=== PATIENT | female | born 2000 | race Caucasian/White ===

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

== ENCOUNTER 2024-06-01 10:19 | Outpatient (CLI) | payer OTHER ==
[2024-06-01 11:06] LABS: Appearance,Urine Clear (Clear); Bilirubin,Urine Negative (Negative); Blood,Urine Negative (Negative); Color,Urine Light Yellow; Glucose,Urine (UA) Negative (Negative); Ketones,Urine Negative (Negative); Leukocyte Esterase,Urine Negative (Negative); Nitrite,Urine Negative (Negative); PH, Urine 5.5 (5.0-8.0); Protein,Urine Negative (Negative); Specific Gravity,Urine 1.015 (1.001-1.035); Urobilinogen,Urine <2.0 mg/dL (<2.0)
[2024-06-01 11:24] LABS: Creatinine,Urine Random 55.3 mg/dL; Protein/Creatinine Ratio,Urine 0.145
[2024-06-01 12:08] LABS: Basophils % (A) 0 %; Eosinophils # (A) 0.1 k/uL (0-0.7); Eosinophils % (A) 1 %; HCT 38.4 % (34.0-46.0); Lymphocytes # (A) 1.1 k/uL (1.0-4.8); Lymphocytes % (A) 14 %; MCH 29.8 pg (25.0-35.0); MCHC 33.9 g/dL (31.0-37.0); MCV 87.9 fL (80.0-100.0); Mean Platelet Volume 7.9; Monocytes # (A) 0.4 k/uL (0-1.0); Monocytes % (A) 5 %; Neutrophils # (A) 6.4 k/uL (1.3-7.7); Neutrophils % (A) 78 %; Platelet Count 259 k/uL (150-450); RBC 4.37 m/uL (3.80-5.40); RDW 14.7 % (11.5-15.5); WBC 8.2 k/uL (3.8-10.6)
[2024-06-01 12:19] LABS: Uric Acid 4.2 mg/dL (3.7-7.4)
[2024-06-01 13:21] VITALS: BP 119/67; PULSE 110; RESP 16; TEMP 96.7
== END 2024-06-01 13:15 | disposition home or self-care (01) ==
LOC: FBPOP 10:19
PROVIDERS: ATTEND Obstetrics & Gynecology Obstetrics
DX: O13.3 Gestational [pregnancy-induced] hypertension without significant proteinuria, third trimester (principal); O99.333 Smoking (tobacco) complicating pregnancy, third trimester; F17.200 Nicotine dependence, unspecified, uncomplicated; Z3A.38 38 weeks gestation of pregnancy
CPT/HCPCS: 59025; 82570; 84156; 84450; 84460; 84550; 85025; 81003; G0463; 99215

== ENCOUNTER 2024-06-13 05:55 | Inpatient (IN) | payer OTHER ==
[2024-06-13] MEDS ORDERED: CARBOPROST TROMETHAMINE 250 MCG/ML 1 ML AMP IM PRN (06:16)
[2024-06-13] MEDS ORDERED: TERBUTALINE 1 MG/ML VIAL SQ PRN (06:16)
[2024-06-13] MEDS ORDERED: TRANEXAMIC 1,000 MG/100ML-NACL 1,000 MG in EMPTY BAG 1 BAG IV PRN (06:16)
[2024-06-13] MEDS ORDERED: miSOPROStoL 200 MCG TAB PO PRN (06:16)
[2024-06-13] MEDS ORDERED: METHYLERGONOVINE 0.2 MG/ML 1 ML AMP IM PRN (06:16)
[2024-06-13] MEDS ORDERED: OXYTOCIN 10 UNIT/ML 1 ML VIAL IM PRN (06:16)
[2024-06-13] MEDS ORDERED: LIDOCAINE 0.5% (PF) 5 MG/ML (50 ML SDV) SQ PRN (06:16)
[2024-06-13] MEDS ORDERED: miSOPROStoL 200 MCG TAB RECTAL PRN (06:16)
[2024-06-13] MEDS: LACTATED RINGERS 1,000 ML IV SCH ×2 (06:19→20:24)
[2024-06-13 06:38] LABS: Basophils % (A) 0 %; Eosinophils # (A) 0.1 k/uL (0-0.7); Eosinophils % (A) 1 %; HCT 37.9 % (34.0-46.0); Lymphocytes # (A) 1.3 k/uL (1.0-4.8); Lymphocytes % (A) 16 %; MCH 29.4 pg (25.0-35.0); MCHC 34.4 g/dL (31.0-37.0); MCV 85.5 fL (80.0-100.0); Mean Platelet Volume 7.7; Monocytes # (A) 0.4 k/uL (0-1.0); Monocytes % (A) 5 %; Neutrophils # (A) 6.3 k/uL (1.3-7.7); Neutrophils % (A) 77 %; Platelet Count 267 k/uL (150-450); RBC 4.43 m/uL (3.80-5.40); RDW 14.3 % (11.5-15.5); WBC 8.2 k/uL (3.8-10.6)
[2024-06-13] MEDS: OXYTOCIN 30 UNITS/500 ML NS 30 UNIT in SALINE 1 500ML.BAG IV SCH (06:44)
--- NOTE | 2024-06-13 08:43 | P.HPOB ---
History of Present Illness H&P Date: 06/13/24 Chief Complaint: Postdates This is a 24-year-old 1 para 0 at 40 3/7 weeks, that presents to labor and delivery for induction of labor secondary to postdates. Patient states she contracted through the weekend but nothing uncomfortable. Patient denies loss of fluid vaginal bleeding and does admit to good movement. Patient has been receiving routine care which has been essentially uncomplicated. blood work this patient is a blood type of Review of Systems Constitutional: Denies chills, Denies fatigue, Denies fever Ears, nose, mouth and throat: Denies headache Cardiovascular: Reports leg edema Respiratory: Denies dyspnea Gastrointestinal: Denies constipation, Denies diarrhea, Denies nausea, Denies vomiting Genitourinary: Reports Past Medical History Past Medical History: No Reported History History of Any Multi-Drug Resistant Organisms: None Reported Past Surgical History: No Surgical Hx Reported Past Anesthesia/Blood Transfusion Reactions: No Reported Reaction Past Psychological History: No Psychological Hx Reported Smoking Status: Former smoker Past Alcohol Use History: None Reported Past Drug Use History: None Reported - Past Family History Mother Family Medical History: No Reported History Father Family Medical History: Hyperlipidemia Medications and Allergies Home Medications Medication Instructions Recorded Confirmed Type Aspirin [Adult Low Dose Aspirin EC] 81 mg PO DAILY 06/01/24 06/01/24 History Omeprazole [PriLOSEC] 10 mg PO DAILY 06/01/24 06/13/24 History Sertraline HCl [Zoloft] 75 mg PO DAILY 06/01/24 06/13/24 History Allergies Allergy/AdvReac Type Severity Reaction Status Date / Time No Known Allergies Allergy Verified 06/13/24 06:15 Exam Osteopathic Statement: *. No significant issues noted on an osteopathic structural exam other than those noted in the History and Physical/Consult. Vital Signs Temp Pulse Resp BP Pulse Ox 06/13/24 06:20 97.1 F L 90 16 142/79 96 Intake and Output 06/12/24 06/13/24 06/13/24 22:59 06:59 14:59 Other: Weight 129.274 kg Targeted physical exam is performed this date General is a well-nourished well- developed female in no acute distress, breathing is nonlabored, heart has a regular rate and rhythm, abdomen is gravid, on cervical exam she is 2/50/- 2 station amniotomy is performed and thick meconium stained fluid is appreciated. heart tones are noted to be category 1 and she is david every 2 minutes. Results Result Diagrams: 06/13/24 06:15 Assessment and Plan (1) Post-dates Current Visit: Yes Status: Acute Code(s): O48.0 - POST-TERM SNOMED Code(s): 66304306 (2) Thick meconium stained amniotic fluid Current Visit: Yes Status: Acute Code(s): P96.83 - MECONIUM STAINING SNOMED Code(s): 579635350 Plan: 24-year-old 1 para 0 at 40-3/7 weeks that presents for induction of lab or. Pitocin induction of labor has begun per hospital protocol. Options for analgesia are discussed including Nubain, nitrous, epidural. Patient will consider.
[2024-06-13] MEDS: NALBUPHINE 10 MG/ML (10 ML MDV) IV PRN (11:08)
[2024-06-13] MEDS ORDERED: SIMETHICONE 80 MG CHEWABLE PO PRN (17:40)
[2024-06-13] MEDS ORDERED: diphenhydrAMINE 25 MG CAP PO PRN (17:40)
[2024-06-13] MEDS ORDERED: diphenhydrAMINE 50 MG CAP PO PRN (17:40)
[2024-06-13] MEDS ORDERED: HYDROmorphone PCA 10 MG/50 ML BAG IV PRN (17:40)
[2024-06-13] MEDS ORDERED: METOCLOPRAMIDE 5 MG/ML 2 ML VIAL IVP PRN (17:40)
[2024-06-13] MEDS ORDERED: diphenhydrAMINE 50 MG/ML 1 ML VIAL IVP PRN (17:40)
[2024-06-13] MEDS ORDERED: NALOXONE 0.4 MG/ML 1 ML VIAL IV PRN (17:40)
[2024-06-13] MEDS ORDERED: ZOLPIDEM 5 MG TAB PO PRN (17:40)
[2024-06-13] MEDS ORDERED: ONDANSETRON 4 MG/2 ML VIAL IVP PRN (17:40)
[2024-06-13] MEDS: CITRIC ACID-SODIUM CITRATE 15 ML CUP PO ONE (17:52)
[2024-06-13] MEDS: ceFAZolin 3 GM in SODIUM CHLORIDE 0.9% 100 ML IVPB ONE (18:01)
--- NOTE | 2024-06-13 19:03 | P.OP ---
Date of Procedure: 06/13/24 Preoperative Diagnosis: IUP at 40 and 3/7, maternal intolerance to labor, patient requesting primary , meconium stained fluid Postoperative Diagnosis: Same Procedure(s) Performed: Primary low-transverse section Surgeon: Ayla Cee Slate Cutter #1: [place] Estimated Blood Loss (ml): 967 IV fluids (ml): 600 Urine output (ml): 100 Pathology: other (Placenta) Condition: stable Disposition: observation Indications for Procedure: 24-year-old 1 para 0 that presented to labor and delivery at 40-3/7 weeks for induction of labor secondary to postdates. Patient underwent amniotomy and meconium stained fluid was appreciated. Patient did become uncomfortable and requested epidural placement. Epidural was placed x 2 with minimal relief of contraction pain. Patient progressed to 5 cm with increasing caput, patient at this time is requesting primary secondary to discomfort. Upon counseling of exam and discomfort patient is once again requesting primary . Anesthesia is notified and will come and branch credit counselor patient regarding options for analgesia during section Operative Findings: Normal uterus tubes and ovaries are appreciated, viable male infant delivered at 1827, weight of 8 pounds 10 ounces, Apgars of 4 8 and 9 at 1 5 and 10 minutes Description of Procedure: The patient was prepped and draped in the usual fashion after spinal anesthesia was administered by the anesthesia department. A Pfannenstiel incision was made and extended of the abdominal cavity without difficulty. An Jack retractor was placed without difficulty, a 2 cm incision was made in the transverse plane of the lower uterine segment to enter the uterus at which time clear fluid was noted. The incision was extended in both directions using the bandage scissors. The head was encountered within the field and delivered up and through the incision where the nose and mouth were thoroughly suctioned. Remainder of the infant was delivered onto the surgical field where the cord was doubly clamped, cut, and the was passed for resuscitative measures with weight and Apgars as noted above. The placenta was delivered manually, intact, and was grossly normal with a grossly normal three-vessel cord. The uterus was unable to be exteriorized secondary to large abdominal pannus, the interior cavity of the uterus swept of any remaining placental and membranous fragments with a laparotomy sponge. The margins of the incision were grasped with Nieves clamps and the incision closed in 2 layers. First layer was a running locking layer of 0 Vicryl from margin to margin followed by a second layer of imbricating 0 Vicryl from margin to margin. A small amount of bleeding was appreciated on the midportion of the uterine incision therefore a [id number] suture was used to obtain hemostasis. Any small points of bleeding were then made hemostatic with the Bovie. Once hemostasis was achieved, the pelvis was cleared of any clots and debris, and the gutters swept of any remaining blood fluid or clot. The incision was again reexamined and hemostasis was noted to be excellent. Any small point of bleeding were made hemostatic with the Bovie. Once hemostasis was achieved the parietal peritoneum was loosely reapproximated. The layer of muscles were examined and made hemostatic with the Bovie. Attention was then turned to the fascia which was closed with 2 running stitches of 0 Vicryl proceeding from the lateral margins to the midpoint. The subcutaneous tissues were irrigated, made hemostatic with the Bovie, and reapproximated with a running stitch of 30 Vicryl. The skin was reapproximated with 4-0 Vicryl. Estimated blood loss for the case was approximately 967 mL. All sponge instrument and needle counts are correct. There were no complications. The patient tolerated the procedure well and proceeded to the recovery room in stable condition. Both mother and infant are resting comfortably in recovery.
[2024-06-13] MEDS: SENNOSIDES-DOCUSATE SODIUM 1 EACH TAB PO SCH (20:23)
[2024-06-13] MEDS: ACETAMINOPHEN IV (For NPO) 1,000 MG in EMPTY BAG 1 BAG IVPB PRN (20:23)
[2024-06-13] MEDS: SERTRALINE 25 MG TAB PO SCH (20:24)
[2024-06-13] MEDS: ACETAMINOPHEN TAB 500 MG TAB PO SCH (20:45)
[2024-06-13] MEDS: diphenhydrAMINE 50 MG/ML 1 ML VIAL IVP PRN (21:28)
[2024-06-14] MEDS: IBUPROFEN IV 800 MG in SODIUM CHLORIDE 0.9% 250 ML IV PRN (00:21)
[2024-06-14] MEDS: IBUPROFEN 600 MG TAB PO SCH (01:31)
[2024-06-14] MEDS: Rhogam IMMUNE GLOBULIN 1,500 UNIT/1 ML IM ONE (03:07)
--- NOTE | 2024-06-14 06:13 | P.PN ---
Progress Note - Text Progress Note Date: 06/14/24 POD 1 from spinal with duramorph, s/p c section. Epidural did not provide adequete analgesia. Spinal with 300mcg of PF Morphine was used. Patient did well overnight, pain controlled. Able to pass gas, urinate and ambulate. No we weakness in lower ext. Mild pruritis. Mentation is at baseline. Dell Valera MD.
[2024-06-14 06:23] LABS: Basophils % (A) 0 %; Eosinophils % (A) 0 %; HGB 10.3 gm/dL (11.4-16.0); Lymphocytes # (A) 1.2 k/uL (1.0-4.8); Lymphocytes % (A) 14 %; MCH 29.2 pg (25.0-35.0); MCHC 33.3 g/dL (31.0-37.0); MCV 87.6 fL (80.0-100.0); Mean Platelet Volume 7.6; Monocytes # (A) 0.6 k/uL (0-1.0); Monocytes % (A) 6 %; Neutrophils % (A) 78 %; Platelet Count 231 k/uL (150-450); RBC 3.54 m/uL (3.80-5.40); RDW 14.4 % (11.5-15.5)
--- NOTE | 2024-06-14 08:41 | P.PNOBGPC ---
Subjective - Subjective Principal diagnosis: Postop day 1 Interval history: Feeling very well this morning. No complaints. No spontaneous void yet after Miranda catheter removed at 3 AM. Patient reports: Reports appetite normal, Reports pain well controlled, Reports ambulating normally, Denies voiding normally : doing well Objective - Vital Signs Latest vital signs: Vital Signs Temp Pulse Resp BP Pulse Ox 06/14/24 03:37 97.9 F 86 16 105/70 95 06/14/24 00:26 98.0 F 92 16 111/74 95 06/13/24 21:03 98.0 F 101 H 16 127/59 97 06/13/24 20:48 101 H 16 139/65 97 06/13/24 20:33 101 H 16 128/66 96 06/13/24 20:18 92 16 140/66 98 06/13/24 20:03 82 16 139/64 97 06/13/24 19:48 93 16 140/63 97 06/13/24 19:33 83 16 135/61 98 06/13/24 19:18 103 H 16 143/65 95 06/13/24 19:03 83 18 130/63 99 Intake and Output 06/13/24 06/14/24 06/14/24 22:59 06:59 14:59 Output Total 1717 500 Balance -1717 -500 Output: Urine 500 500 Uretheral (Miranda) 500 500 Output, Quantitative 1217 Blood Loss Other: Voiding Method Indwelling Catheter Indwelling Catheter - Exam Extremities: Present: normal, edema Abdomen: Present: normal appearance, soft. Absent: tenderness Incision: Present: normal, dry, intact, dressed Uterus: Present: normal - Labs Labs: Abnormal Lab Results - Last 24 Hours (Table) 06/14/24 Range/Units 05:57 RBC 3.54 L (3.80-5.40) m/uL Hgb 10.3 L (11.4-16.0) gm/dL Hct 31.0 L (34.0-46.0) % Assessment and Plan (1) Post-dates Current Visit: Yes Status: Acute Code(s): O48.0 - POST-TERM SNOMED Code(s): 42125249 (2) Thick meconium stained amniotic fluid Current Visit: Yes Status: Acute Code(s): P96.83 - MECONIUM STAINING SNOMED Code(s): 271980777 (3) S/P section Current Visit: Yes Status: Acute Code(s): Z98.891 - HISTORY OF UTERINE SCAR FROM PREVIOUS SURGERY SNOMED Code(s): 242217273 Plan: Postop day 1 status post primary low transverse section secondary to arrest of descent and dilation, maternal discomfort and request for section. Currently recovering well. She has yet to have spontaneous void with Miranda catheter out. Straight catheter as indicated. Otherwise advance per protocol. Probable discharge home tomorrow.
[2024-06-14] MEDS ORDERED: SERTRALINE 25 MG TAB PO SCH (09:00)
[2024-06-15 08:47] VITALS: RESP 16
[2024-06-15 12:51] VITALS: BP 124/80; PULSE 88; TEMP 98
--- NOTE | 2024-06-15 13:29 | P.DS ---
Providers Date of admission: 06/13/24 05:55 Expected date of discharge: 06/15/24 Attending physician: Ayla Cee Primary care physician: Stated None - Discharge Diagnosis(es) (1) Post-dates Current Visit: Yes Status: Acute (2) Thick meconium stained amniotic fluid Current Visit: Yes Status: Acute (3) S/P section Current Visit: Yes Status: Acute Hospital Course: 24-year-old 1 now para 1 that presented to labor and delivery on 06/13 for scheduled induction of labor secondary to postdates. Full details on this patient please the dictated history and physical patient was admitted to labor and delivery and Pitocin induction of labor was begun. Patient made minimal progress of the day but ultimately after 2 failed epidural was requested C- section secondary to maternal intolerance of labor. Patient was taken back to the operating suite where primary was performed without difficulty. Full details on the please see the dictated operative report. Patient delivered a viable male infant at 1827, weight of 8 pounds 10 ounces. Patient has done well post operatively. She is ambulating and voiding without difficulty on this postoperative day #2. She states her pain is well- controlled. She would like discharge home later today. Patient Condition at Discharge: Good Plan - Discharge Summary New Discharge Prescriptions: No Action Aspirin [Adult Low Dose Aspirin EC] 81 mg PO DAILY Sertraline HCl [Zoloft] 75 mg PO DAILY Omeprazole [PriLOSEC] 10 mg PO DAILY Discharge Medication List Aspirin [Adult Low Dose Aspirin EC] 81 mg PO DAILY 06/01/24 [History] Omeprazole [PriLOSEC] 10 mg PO DAILY 06/01/24 [History] Sertraline HCl [Zoloft] 75 mg PO DAILY 06/01/24 [History] Follow up Appointment(s)/Referral(s): Ayla Cee DO [Doctor of Osteopathic Medicine] - 06/27/24 11:00 am (Post Appointment 07-20-2024 at 9:15am) Patient Instructions/Handouts: (DC), (GEN) Discharge Disposition: HOME SELF-CARE
== END 2024-06-15 15:20 | disposition home or self-care (01) | DRG 540 ==
LOC: 4FBP 05:55
PROVIDERS: ADMIT Obstetrics & Gynecology Obstetrics; ATTEND Obstetrics & Gynecology Obstetrics
PROC: 10D00Z1 Extraction of Products of Conception, Low, Open Approach (ICD-10-PCS; principal; 2024-06-13 06:15)
DX: O48.0 Post-term pregnancy (principal); O77.0 Labor and delivery complicated by meconium in amniotic fluid; O75.89 Other specified complications of labor and delivery; L29.9 Pruritus, unspecified; Z37.0 Single live birth; Z3A.40 40 weeks gestation of pregnancy; Z79.82 Long term (current) use of aspirin; Z79.899 Other long term (current) drug therapy; Z87.891 Personal history of nicotine dependence
CPT/HCPCS: 85025; 85461; 86850; 86900; 86901; 88307